=== PATIENT | male | born 1975 | race Caucasian/White ===

== ENCOUNTER 2019-08-08 13:44 | Emergency (ER) | payer OTHER, SELFPAY ==
[~2019-08-08] VITALS: Ht 177.8 cm; Wt 72.6 kg
[~2019-08-08 13:44] MED LIST: ATIVAN0.5 M1 PO; FOL1 PO; THI100 PO
[2019-08-08 14:06] VITALS: Ht 177.8 cm; Wt 72.6 kg
[2019-08-08 16:50] VITALS: BP 106/57
== END 2019-08-08 16:50 | disposition home or self-care (01) ==
LOC: ED 13:44
DX: B34.9 Viral infection, unspecified (principal); J40 Bronchitis, not specified as acute or chronic; I10 Essential (primary) hypertension
CPT/HCPCS: 87804; J2270; J7030